=== PATIENT | male | born 1970 | race Caucasian/White ===

== ENCOUNTER 2017-10-31 17:22 | Emergency (ER) | payer OTHER ==
[~2017-10-31] VITALS: Ht 182.9 cm; Wt 136.1 kg
[~2017-10-31 17:22] MED LIST: NORFLEX100 MG PO; TORADOL10 MG PO; XYZAL5 MG PO
== END 2017-10-31 23:05 | disposition home or self-care (01) ==
LOC: ER 17:22 → CPU-OBS 17:24 → ER 23:05
DX: R07.89 Other chest pain (principal); R53.83 Other fatigue; F06.4 Anxiety disorder due to known physiological condition
CPT/HCPCS: G0378; G0379; 93005; 82805; 36600

== ENCOUNTER 2017-12-23 10:13 | Emergency (ER) | payer OTHER ==
[~2017-12-23] VITALS: Ht 180.3 cm; Wt 139.7 kg
[2017-12-23] MEDS ORDERED: MUCINEX600 MG PO (13:44)
[2017-12-23] MEDS ORDERED: AMOX1TAB5 PO (13:44)
== END 2017-12-23 14:11 | disposition home or self-care (01) ==
LOC: ER 10:13
DX: J32.8 Other chronic sinusitis (principal)

== ENCOUNTER → 2018-01-18 | Emergency (ER) | payer OTHER ==
[~2018-01-18] VITALS: Ht 180.3 cm; Wt 136.1 kg
[~2018-01-18] MED LIST changes: +AMOX1TAB5 PO; +MOXIFLOXACIN H400 MG; +MUCINEX600 MG PO; +PRILOSEC10 MG
== END | disposition home or self-care (01) ==
LOC: ER 16:56
DX: R07.1 Chest pain on breathing (principal)

== ENCOUNTER → 2018-10-14 | Emergency (ER) | payer OTHER | END | disposition left against medical advice (07) | LOC: ER 09:15 | DX: Z53.20 Procedure and treatment not carried out because of patient's decision for unspecified reasons (principal) ==

== ENCOUNTER 2018-10-18 11:58 | Outpatient (CLI) | payer OTHER | END 2018-10-18 12:02 | disposition home or self-care (01) | LOC: RAD 11:58 → NUCLEAR 14:00 | DX: J01.20 Acute ethmoidal sinusitis, unspecified (principal); I49.5 Sick sinus syndrome; J01.90 Acute sinusitis, unspecified; G90.01 Carotid sinus syncope ==

== ENCOUNTER → 2018-10-18 | Outpatient (CLI) | payer OTHER | END | disposition home or self-care (01) | LOC: NUCLEAR 12:48 | DX: J01.20 Acute ethmoidal sinusitis, unspecified (principal); I49.5 Sick sinus syndrome; J01.90 Acute sinusitis, unspecified; G90.01 Carotid sinus syncope; I67.89 Other cerebrovascular disease ==

== ENCOUNTER 2018-12-11 20:55 | Emergency (ER) | payer OTHER ==
[~2018-12-11] VITALS: Ht 188 cm; Wt 131.5 kg
== END 2018-12-12 01:28 | disposition home or self-care (01) ==
LOC: ER 20:55
DX: S80.812A Abrasion, left lower leg, initial encounter (principal); L08.9 Local infection of the skin and subcutaneous tissue, unspecified; W45.8XXA Other foreign body or object entering through skin, initial encounter; Y93.89 Activity, other specified; Y92.89 Other specified places as the place of occurrence of the external cause; Y99.8 Other external cause status